=== PATIENT | female | born 1945 | race Caucasian/White ===

== ENCOUNTER 2016-09-08 19:37 | Emergency (ER) | payer MEDICARE, OTHER ==
[~2016-09-08] VITALS: Ht 152.4 cm; Wt 50.5 kg
[~2016-09-08 19:37] MED LIST: ALLE10TA PO; ESTR1TAB PO; REFRDRO EACH EYE
[2016-09-08 19:44] VITALS: BP 138/64; PULSE 73; RESP 20; TEMP 97.7; O2SAT 97
[2016-09-08 20:00] VITALS: BP 128/76; PULSE 72; RESP 20; O2SAT 98
[2016-09-08] MEDS ORDERED: FLUT1SPR9 EACH NARE (20:30)
[2016-09-08] MEDS ORDERED: SYMB80AE INH (20:30)
[2016-09-08] MEDS ORDERED: MEDR2.5 PO (20:30)
[2016-09-08] MEDS ORDERED: SODIUM CHLOR 0.9% 1000 ML INJ 1,000 ML IV ONE (20:32)
[2016-09-08] MEDS ORDERED: SODIUM CHLORIDE 0.9% FLUSH 10 ML FLUSH IVF PRN (20:45)
[2016-09-08] MEDS ORDERED: ONDANSETRON HCL 4 MG/2 ML VIAL IVP ONE (20:45)
[2016-09-08] MEDS ORDERED: MECLIZINE HCL 25 MG TAB PO ONE (20:45)
[2016-09-08 20:52] LABS: AUTOMATED NEUTROPHIL # 6.6 TH/MM3 (1.8-7.7); BASOPHIL # 0.1 TH/MM3 (0-0.2); BASOPHIL % 0.9 % (0.0-2.0); EOSINOPHIL # 0.1 TH/MM3 (0-0.4); EOSINOPHIL % 1.3 % (0.0-4.0); HEMATOCRIT 37.2 % (35.0-46.0); LYMPH % 15.8 % (9.0-44.0); LYMPHOCYTE # 1.4 TH/MM3 (1.0-4.8); MEAN CELL VOLUME 95.8 FL (80.0-100.0); MEAN CORPUSCULAR HEMOGLOBIN 33.4 PG (27.0-34.0); MEAN CORPUSCULAR HGB CONC 34.8 % (32.0-36.0); MONO % 4.5 % (0.0-8.0); NEUT % 77.5 % (16.0-70.0); PLATELET COUNT 306 TH/MM3 (150-450); RED BLOOD COUNT 3.88 MIL/MM3 (4.00-5.30); RED CELL DISTRIBUTION WIDTH 12.1 % (11.6-17.2); WHITE BLOOD COUNT 8.6 TH/MM3 (4.0-11.0)
[2016-09-08 20:56] LABS: CHLORIDE 101 MEQ/L (98-107); POTASSIUM 3.7 MEQ/L (3.5-5.1); SODIUM (NA) 135 MEQ/L (136-145)
[2016-09-08 21:00] LABS: ANION GAP 9 MEQ/L (5-15); BICARBONATE 24.7 MEQ/L (21.0-32.0); BLOOD UREA NITROGEN 14 MG/DL (7-18); HEMO FLAGS AUTO DIFF; MAGNESIUM 2.1 MG/DL (1.5-2.5)
[2016-09-08 21:03] LABS: ALT (GPT) 17 U/L (10-53); AST (GOT) 13 U/L (15-37); GLOMERULAR FILTRATION RATE 110 ML/MIN (>89)
[2016-09-08 21:04] LABS: TOTAL BILIRUBIN ADULT 0.5 MG/DL (0.2-1.0)
[2016-09-08 21:06] LABS: ALKALINE PHOSPHATASE 74 U/L (45-117)
[2016-09-08 21:10] LABS: CREATINE KINASE 49 U/L (26-192)
--- NOTE | 2016-09-08 21:12 | RADRPT ---
EXAM DATE/TIME: 09/08/2016 20:42 [place] COMPARISON: No previous studies available for comparison. INDICATIONS : Dizziness. RADIATION DOSE: 64.78 CTDIvol (mGy) MEDICAL HISTORY : Chronic obstructive pulmonary disease. SURGICAL HISTORY : section. ENCOUNTER: Initial ACUITY: 1 day PAIN SCALE: 2/10 LOCATION: cranial TECHNIQUE: Multiple contiguous axial images were obtained of the head. Using automated exposure control and adj ustment of the mA and/or kV according to patient size, radiation dose was kept as low as reasonably a chievable to obtain optimal diagnostic quality images. DICOM format image data is available electro nically for review and comparison. FINDINGS: CEREBRUM: The ventricles are normal for age. There is a patent cavum septum pellucida. There is vague low dens ity within the cerebral white matter. No evidence of midline shift, mass lesion, hemorrhage or acute infarction. No extra-axial fluid collections are seen. POSTERIOR FOSSA: The cerebellum and brainstem are intact. The 4th ventricle is midline. The cerebellopontine angle i s unremarkable. EXTRACRANIAL: The visualized portion of the orbits is intact. SKULL: The calvaria is intact. No evidence of skull fracture. CONCLUSION: 1. No acute intracranial abnormality is seen. 2. Low-density in the cerebral white matter likely secondary to small vessel ischemic demyelination. Migel Dumont MD on September 08, 2016 at 21:07 Board Certified Radiologist. This report was verified electronically.
[2016-09-08 21:17] VITALS: BP 133/58; PULSE 69; RESP 20; O2SAT 98
--- NOTE | 2016-09-08 21:24 | PD ---
HPI Chief Complaint: Dizziness Time Seen by Provider: 19:53 Travel History International Travel<30 days: No Contact w/Intl Traveler<30days: No Traveled to known affect area: No History of Present Illness HPI The patient 71 years old and arrives with a complaint of dizziness. She states it started this morning after she breakfast. She typically lays down with her dog on the floor after eating breakfast. Today after getting up following her morning nap she felt woozy and dizzy. She felt difficulty while attempting to stand. She crawled into the bathroom where she felt continuously nauseated. She describes the dizziness primarily as lightheadedness. She also interacts dizziness and wooziness several times and is somewhat equivocal with regard to the sensation of the room spinning about her. She's had no chest pain or shortness of breath. She notes that this headache dizziness type sensation is worse with changing of positions up and down or with rotation. She wonders if it may be related to her ear crystals. Evidently one month ago similar event occurred and resolved spontaneously after several hours. Today's symptoms are little more severe. She has been in her normal state of good health otherwise. PFSH Past Medical History COPD: Yes Tetanus Vaccination: Unknown Influenza Vaccination: No ?: Not Menopausal: Yes Past Surgical History Section: Yes (X2) Tonsillectomy: Yes Social History Alcohol Use: Yes Tobacco Use: Yes (1 PPD ) Substance Use: No Allergies-Medications (Allergen,Severity, Reaction): Coded Allergies: Erythromycin (Verified Allergy, Severe, 09/08/16) Reported Meds & Prescriptions Reported Meds & Active Scripts Active Reported Flonase Allergy Relief Children Nasal Berkey (Fluticasone Nasal Berkey) 50 Mcg/ Act Berkey 1 Berkey EACH NARE DAILY 50 mcg/spray Provera (Medroxyprogesterone Acetate) 2.5 Mg Tab 2.5 Mg PO DAILY Start day 21 Symbicort Inh (Budesonide/Formoterol Fumarate) 80-4.5 Mcg/Act Aero 1 Puff INH Q12HR Allergy Relief (Loratadine) 10 Mg Tab 10 Mg PO DAILY Estradiol 1 Mg Tab 1 Mg PO DAILY Refresh Opth Drops (Polyvinyl Alcohol-Povidone Opth Drops) 1.4-0.6% Drops 1-2 Drop EACH EYE PRN PRN Review of Systems Except as stated in HPI: all other systems reviewed are Neg Physical Exam Narrative GENERAL: Well-nourished, developed 71-year-old female SKIN: Focused skin assessment warm/dry. HEAD: Atraumatic. Normocephalic. EYES: Pupils equal and round. No scleral icterus. No injection or drainage. ENT: No nasal bleeding or discharge. Mucous membranes pink and moist. NECK: Trachea midline. No JVD. CARDIOVASCULAR: Regular rate and rhythm. No murmur appreciated. RESPIRATORY: No accessory muscle use. Clear to auscultation. Breath sounds equal bilaterally. GASTROINTESTINAL: Abdomen soft, non-tender, nondistended. Hepatic and splenic margins not palpable. MUSCULOSKELETAL: No obvious deformities. No clubbing. No cyanosis. No edema. NEUROLOGICAL: Awake and alert. No obvious cranial nerve deficits. Motor grossly within normal limits. Normal speech. PSYCHIATRIC: Appropriate mood and affect; insight and judgment normal. Data Data Last Documented VS Vital Signs Date Time Temp Pulse Resp B/P Pulse Ox O2 Delivery O2 Flow Rate FiO2 09/08/16 21:17 69 20 133/58 98 09/08/16 19:44 97.7 Vital signs reviewed Orders Electrocardiogram (09/08/16 20:32) Complete Blood Count With Diff (09/08/16 20:32) Comprehensive Metabolic Panel (09/08/16 20:32) Magnesium (Mg) (09/08/16 20:32) Ckmb (Isoenzyme) Profile (09/08/16 20:32) Troponin I (09/08/16 20:32) Urinalysis - C+S If Indicated (09/08/16 20:32) Ct Brain W/O Iv Contrast(Rout) (09/08/16 20:32) Ecg Monitoring (09/08/16 20:32) Iv Access Insert/Monitor (09/08/16 20:32) Oximetry (09/08/16 20:32) Meclizine (Antivert) (09/08/16 20:45) Ondansetron Inj (Zofran Inj) (09/08/16 20:45) Sodium Chloride 0.9% Flush (Ns Flush) (09/08/16 20:45) Sodium Chlor 0.9% 1000 Ml Inj (Ns 1000 M (09/08/16 20:32) Lorazepam Inj (Ativan Inj) (09/08/16 22:30) Labs Laboratory Tests Test 09/08/16 09/08/16 20:15 21:45 White Blood Count 8.6 TH/MM3 Red Blood Count 3.88 MIL/MM3 Hemoglobin 13.0 GM/DL Hematocrit 37.2 % Mean Corpuscular Volume 95.8 FL Mean Corpuscular Hemoglobin 33.4 PG Mean Corpuscular Hemoglobin 34.8 % Concent Red Cell Distribution Width 12.1 % Platelet Count 306 TH/MM3 Mean Platelet Volume 7.7 FL Neutrophils (%) (Auto) 77.5 % Lymphocytes (%) (Auto) 15.8 % Monocytes (%) (Auto) 4.5 % Eosinophils (%) (Auto) 1.3 % Basophils (%) (Auto) 0.9 % Neutrophils # (Auto) 6.6 TH/MM3 Lymphocytes # (Auto) 1.4 TH/MM3 Monocytes # (Auto) 0.4 TH/MM3 Eosinophils # (Auto) 0.1 TH/MM3 Basophils # (Auto) 0.1 TH/MM3 CBC Comment AUTO DIFF Differential Comment AUTO DIFF CONFIRMED Sodium Level 135 MEQ/L Potassium Level 3.7 MEQ/L Chloride Level 101 MEQ/L Carbon Dioxide Level 24.7 MEQ/L Anion Gap 9 MEQ/L Blood Urea Nitrogen 14 MG/DL Creatinine 0.55 MG/DL Estimat Glomerular Filtration 110 ML/MIN Rate Random Glucose 125 MG/DL Calcium Level 8.2 MG/DL Magnesium Level 2.1 MG/DL Total Bilirubin 0.5 MG/DL Aspartate Amino Transf 13 U/L (AST/SGOT) Alanine Aminotransferase 17 U/L (ALT/SGPT) Alkaline Phosphatase 74 U/L Total Creatine Kinase 49 U/L Troponin I LESS THAN 0.02 NG/ML Total Protein 6.6 GM/DL Albumin 3.6 GM/DL Urine Color YELLOW Urine Turbidity CLEAR Urine pH 6.5 Urine Specific [place] 1.012 Urine Protein NEG mg/dL Urine Glucose (UA) NEG mg/dL Urine Ketones 40 mg/dL Urine Occult Blood TRACE Urine Nitrite NEG Urine Bilirubin NEG Urine Leukocyte Esterase NEG Urine RBC 0-3 /hpf Urine WBC 3-5 /hpf Urine Squamous Epithelial 6-8 /hpf Cells Urine Bacteria FEW /hpf Microscopic Urinalysis Comment CULT NOT INDICATED MDM Medical Decision Making Medical Screen Exam Complete: Yes Emergency Medical Condition: Yes Medical Record Reviewed: Yes Differential Diagnosis Vertigo, dehydration, nursing, arrhythmia, anemia, electrolyte imbalance, renal failure, coronary disease Narrative Course CBC & BMP Diagram 09/08/16 20:15 LFTs normal Tn < 0.02 UA: minimal ketonuria EKG: sinus, rate 76, normal axis/intervals Last [address] 09/08/162031 Signed Impressions: Service Date/Time: Thursday, September 08, 2016 20:42 - CONCLUSION: 1. No acute intracranial abnormality is seen. 2. Low-density in the cerebral white matter likely secondary to small vessel ischemic demyelination. Migel Dumont MD The patient is resting comfortably and feels better, is alert and in no distress though quite sleepy having received meclizine and lorazepam. The patients results and examination findings were discussed. The repeat examination is unremarkable and benign. The history, exam, diagnostic testing, and current condition do not suggest any significant pathology to warrant further testing, continued ED treatment, admission, or surgical evaluation at this point. The vital signs have been stable. The patient does not have uncontrollable pain, intractable vomiting, or other significant symptoms. The patient's condition is stable and appropriate for discharge. The patient will pursue further outpatient evaluation with a primary care physician or other designated or consulting physician as indicated in the discharge instructions. The patient expressed understanding and was agreeable with this plan. Diagnosis Primary Impression: Dizziness Referrals: Jason Santa MD 2 days Aristides Fernandez MD 2 days Additional Instructions: You have a choice when it comes to health care, and we are glad that you chose [facility]. Hopefully, we have met your expectations on today's visit. You are welcome to return to [facility] at any time, as we are committed to meeting the health care needs of our community. Med/Other Pt SpecificInfo: No Change to Meds Disposition: 01 DISCHARGE HOME Condition: Stable Pedro Hernandez MD Sep 08, 2016 21:24
[2016-09-08 21:36] LABS: SCAN/DIFF AUTO DIFF CONFIRMED
[2016-09-08 21:56] LABS: BLOOD, URINE TRACE (NEG); GLUCOSE,URINE NEG (NEG); KETONE, URINE 40 mg/dL (NEG); NITRITE,URINE NEG (NEG); PH, URINE 6.5 (5.0-8.5)
[2016-09-08 22:00] VITALS: BP 128/76; PULSE 74; RESP 20; O2SAT 99
[2016-09-08 22:03] LABS: URINE COLOR YELLOW (YELLW/STRAW)
[2016-09-08 22:04] LABS: BACTERIA, URINE FEW /hpf; COMMENT (UR) CULT NOT INDICATED; CULTURE IF INDICATED CULT NOT INDICATED; RBC, URINE 0-3 /hpf (0-3)
[2016-09-08] MEDS ORDERED: LORazepam 2 MG/ML VIAL IV PUSH ONE (22:30)
[2016-09-09 00:20] VITALS: BP 119/74
--- NOTE | 2016-09-09 23:19 | EKG ---
Date Performed: 09/08/2016 Time Performed: 20:43:50 PTAGE: 71 years EKG: Sinus rhythm NORMAL ECG NO PREVIOUS TRACING DOCTOR: Edwar Teague Interpretating Date/Time 09/09/2016 23:18:35
== END 2016-09-09 00:20 | disposition home or self-care (01) ==
LOC: PHED 19:37
DX: R42 Dizziness and giddiness (principal); J44.9 Chronic obstructive pulmonary disease, unspecified; F17.210 Nicotine dependence, cigarettes, uncomplicated
CPT/HCPCS: 70450; 80053; 81001; 82550; 83735; 84484; 85025; 93005; 96361; 96374; 96375; 99285; J2060; J2405; J7030